=== PATIENT | female | born 1965 | race Caucasian/White ===

== ENCOUNTER → 2019-04-08 | Outpatient (CLI) | payer BC ==
--- NOTE | 2019-04-08 09:31 | RAD ---
MRI Lumbar Spine without contrast History: Low back pain, bilateral leg radiculopathy Technique: Multiplanar, multi sequential noncontrast MR imaging was performed of the lumbar spine. Comparison: None Findings: Lumbar vertebral body stature and AP alignment are maintained. Conus terminates near L1. There is moderate L5-S1 degenerative disc disease, associated degenerative endplate change. There is mild disc desiccation L3-4 and L4-5. There is degenerative change of the anterior superior and inferior corners of L2 and also inferiorly of L1 and L3. There are small hemangiomas of the L1 and T11 vertebral bodies. There are anterior annular tears L3-4 and L4-5. There is very mild edema of the anterior, superior corner of L4 and also the anterior, inferior corner of L3. L1-L2: This level was not included on the axial images. Spinal canal and neural foramina are adequate. L2-L3: Spinal canal and neural foramina are adequate. L3-L4: There is mild prominence of posterior epidural fat centrally. There is minimal buckling of the ligamentum flavum. Spinal canal and neural foramina are adequate. L4-L5: There is prominence of posterior epidural fat, also minimally in the lateral recesses bilaterally. There is mild buckling of the ligamentum flavum and facet hypertrophic change. There is very mild narrowing of the inferior right neural foramen by minimal disc osteophyte complex, left neural foramen adequate. There is overall mild attenuation of the thecal sac from epidural lipomatosis, somewhat limited preserved subarachnoid space. Epidural lipomatosis also results in attenuation of the thecal sac at the mid aspect of L4 and L5. L5-S1: There is minimal disc osteophyte complex and shallow protrusion near the descending S1 nerve roots greater on the left without displacement or significant spinal stenosis. There is circumferential prominence of epidural fat with limited preserved subarachnoid space. There is minimal narrowing of the inferior right neural foramen by minimal disc osteophyte complex and shallow bulge/protrusion, left neural foramen adequate. Impression: 1. There is moderate L5-S1 degenerative disc disease. Epidural lipomatosis results in degree of attenuation of the thecal sac most notable L4 into the sacrum. Shallow protrusion at L5-S1 is near the descending S1 nerve roots without significant impingement. There is mild narrowing of the right L4-5 and L5-S1 neural foramina. Electronically signed by: Wang Poon MD (04/08/2019 9:28 AM) [id number]
== END | disposition home or self-care (01) ==
LOC: MRI 07:36
PROVIDERS: ATTEND Psychiatry & Neurology Neurology
DX: M51.27 Other intervertebral disc displacement, lumbosacral region (principal); M48.07 Spinal stenosis, lumbosacral region; M25.78 Osteophyte, vertebrae; M51.37 Other intervertebral disc degeneration, lumbosacral region; Z90.49 Acquired absence of other specified parts of digestive tract; Z98.51 Tubal ligation status; Z90.710 Acquired absence of both cervix and uterus
CPT/HCPCS: 72148